=== PATIENT | female | born 1995 ===

== ENCOUNTER → 2019-03-29 | Outpatient (CLI) | payer OTHER ==
--- NOTE | 2019-03-29 09:45 | RAD ---
EXAM: Abdomen sonogram. HISTORY: Abnormal liver enzymes laboratory values. TECHNIQUE: Sonographic imaging of the abdomen was performed. COMPARISON: None. FINDINGS: The liver is upper normal in size. There is hepatic steatosis. No focal hepatic lesion is seen. The common bile duct is normal in caliber. The gallbladder is unremarkable. The right kidney is unremarkable. The inferior vena cava is patent. The pancreas and aorta are predominantly obscured due to bowel gas. IMPRESSION: 1. Hepatic steatosis and upper normal liver size. 2. Partially obscured pancreas and aorta due to bowel gas. Electronically signed by: Bernadette Rodarte MD (03/29/2019 9:42 AM) [id number]
== END | disposition home or self-care (01) ==
LOC: US 09:18
PROVIDERS: ATTEND Family Medicine
DX: K76.0 Fatty (change of) liver, not elsewhere classified (principal)
CPT/HCPCS: 76705